=== PATIENT | female | born 1985 | race Asian ===

== ENCOUNTER 2019-08-22 22:22 | Emergency (ER) | payer OTHER ==
[~2019-08-22] VITALS: Ht 162.6 cm; Wt 50.8 kg
[2019-08-22 22:25] VITALS: BP_SYST 104
--- NOTE | 2019-08-22 22:25 | NUR ---
Patient triaged and placed in waiting room. VSS and patient appears in no acute distress at this time. Accompanied by fam member, awaiting available bed, and MD notified of need for MSE.
[2019-08-23 01:19] LABS: BASOPHILS % (AUTO) 0.4 % (0.0-2.0); EOSINOPHILS % (AUTO) 0.5 % (0.0-4.0); HEMATOCRIT 32.6 % (36-48); HEMOGLOBIN 10.6 g/dL (12.0-16.0); LYMPHOCYTES # (AUTO) 0.6 K/uL (1.0-5.5); LYMPHOCYTES % (AUTO) 9.7 % (20.5-51.5); MEAN CORPUSCULAR HEMOGLOBIN 26 pg (27-31); MEAN CORPUSCULAR HGB CONC 33 % (32-36); MEAN CORPUSCULAR VOLUME 81 fL (79.0-98.0); MONOCYTES # (AUTO) 0.5 K/uL (0.0-1.0); MONOCYTES % (AUTO) 6.9 % (1.7-9.3); NEUTROPHILS # (AUTO) 5.4 K/uL (1.8-7.7); NEUTROPHILS % (AUTO) 82.5 % (40.0-70.0); PLATELET COUNT (AUTO) 452 K/uL (130-430); RED BLOOD CELL COUNT(AUTO) 4.02 MIL/uL (4.2-6.2); RED CELL DISTRIBUTION WIDTH 14.8 % (9.0-15.0); WHITE BLOOD COUNT (AUTO) 6.6 K/uL (4.8-10.8)
[2019-08-23 01:32] LABS: CALCIUM 8.5 mg/dL (8.4-11.0); CREATININE 0.62 mg/dL (0.55-1.30); POTASSIUM 3.5 mmol/L (3.5-5.1)
[2019-08-23 01:37] LABS: ALBUMIN 3.5 g/dL (3.4-4.8); TOTAL BILIRUBIN 0.3 mg/dL (0.0-1.0)
[2019-08-23 01:44] LABS: BILIRUBIN,URINE NEGATIVE (NEGATIVE); BLOOD, URINE NEGATIVE (NEGATIVE); CLARITY/URINE CLEAR (CLEAR); COLOR,URINE YELLOW (YELLOW); GLUCOSE,URINE NEGATIVE (NEGATIVE); KETONES,URINE 1+ (NEGATIVE); LEUKOCYTE ESTERASE ,URINE NEGATIVE (NEGATIVE); NITRITE, URINE NEGATIVE (NEGATIVE); PH,URINE 7.5 (5.0-8.0); PROTEIN URINE NEGATIVE (NEGATIVE); UROBILINOGEN,URINE 0.2 (0.2-1.0)
--- NOTE | 2019-08-23 02:00 | NUR ---
Patient to ER bed 3 to gown for evaluation. Side rails up. Report given to Jimmy shanks.
[2019-08-23] MEDS ORDERED: NACL 0.9% 1,000 ML IV ONE ×2 (02:10→04:00)
--- NOTE | 2019-08-23 02:14 | NUR ---
Pt presents to ER with friend with c/o abdominal pain and dizziness. Pt A&Ox4. Pt states left upper quadrant pain with radiation to left flank pain. Pt states pain is 7/10. Pt states she was seen at [facility] yesterday and diagnosed with UTI. Pt states she was prescribed antibiotics. Pt states she took one antibiotic pill this morning and then took another pill at apptoximately 11 pm. Pt states she began feeling nauseated and vomited two times. Pt states she then began feeling head pain and dizziness. Pt states head pain 3/10. Pt denies fever, cough and SOB. Pt states she was diagnosed with influenza A three weeks ago. Upon assessment, pt has bilaterally clear breath sounds with no use of accessory muscles. Will continue to monitor.
[2019-08-23] MEDS ORDERED: ONDANSETRON HCL 4 MG/2 ML VIAL IVP ONE (02:15)
[2019-08-23] MEDS ORDERED: PANTOPRAZOLE SODIUM 40 MG/VIAL (PROTONIX) IVP ONE (02:15)
--- NOTE | 2019-08-23 02:43 | NUR ---
ALBA Arroyo at bedside attempting IV access.
--- NOTE | 2019-08-23 02:50 | NUR ---
Pt medicated per MD orders. Pt tolerated well. Will continue to monitor.
--- NOTE | 2019-08-23 03:46 | NUR ---
ER Dr. Garcia at bedside talking to patient.
--- NOTE | 2019-08-23 04:15 | NUR ---
ALBA Arroyo at bedside medicating pt.
--- NOTE | 2019-08-23 05:10 | NUR ---
ER Dr. Garcia at bedside explaining results to patient.
[2019-08-23 05:40] VITALS: BP_SYST 110
--- NOTE | 2019-08-23 05:40 | NUR ---
Patient given written and verbal discharge instructions and verbalizes understanding. ER MD Garcia discussed with patient the results and treatment provided. Patient in stable condition. ID arm band removed. IV catheter removed intact and dressing applied, no active bleeding. Rx of Protonix and zofran given. Patient educated on pain management and to follow up with PMD. Pain Scale 1/10. Opportunity for questions provided and answered. Medication side effect fact sheet provided.
== END 2019-08-23 05:40 | disposition home or self-care (01) ==
LOC: SED 22:22
DX: R10.12 Left upper quadrant pain (principal); R11.2 Nausea with vomiting, unspecified; R42 Dizziness and giddiness
CPT/HCPCS: 36415; 80053; 81003; 83690; 85025; 96361; 96374; 96375; 99284; C9113; J2405

== ENCOUNTER 2019-08-25 12:29 | Emergency (ER) | payer OTHER ==
[~2019-08-25] VITALS: Ht 162.6 cm; Wt 50.8 kg
[2019-08-25 12:30] VITALS: BP_SYST 105
[2019-08-25] MEDS ORDERED: NACL 0.9% 1,000 ML IV ONE (12:33)
[2019-08-25] MEDS ORDERED: ONDANSETRON HCL 4 MG/2 ML VIAL IVP ONE (12:45)
[2019-08-25] MEDS ORDERED: KETOROLAC TROMETHAMINE 30 MG VIAL IVP ONE (12:45)
[2019-08-25] MEDS ORDERED: NACL 0.9% 2,000 ML IV ONE ×2 (12:45→15:15)
[2019-08-25 13:20] LABS: BASOPHILS % (AUTO) 0.4 % (0.0-2.0); EOSINOPHILS # (AUTO) 0.1 K/uL (0.0-0.4); EOSINOPHILS % (AUTO) 0.8 % (0.0-4.0); HEMATOCRIT 35.4 % (36-48); HEMOGLOBIN 11.5 g/dL (12.0-16.0); LYMPHOCYTES # (AUTO) 0.9 K/uL (1.0-5.5); LYMPHOCYTES % (AUTO) 13.6 % (20.5-51.5); MEAN CORPUSCULAR HEMOGLOBIN 26 pg (27-31); MEAN CORPUSCULAR HGB CONC 32 % (32-36); MEAN CORPUSCULAR VOLUME 80 fL (79.0-98.0); MONOCYTES # (AUTO) 0.4 K/uL (0.0-1.0); MONOCYTES % (AUTO) 5.3 % (1.7-9.3); NEUTROPHILS # (AUTO) 5.5 K/uL (1.8-7.7); NEUTROPHILS % (AUTO) 79.9 % (40.0-70.0); PLATELET COUNT (AUTO) 448 K/uL (130-430); RED BLOOD CELL COUNT(AUTO) 4.41 MIL/uL (4.2-6.2); RED CELL DISTRIBUTION WIDTH 14.9 % (9.0-15.0); WHITE BLOOD COUNT (AUTO) 6.9 K/uL (4.8-10.8)
[2019-08-25 13:32] LABS: CALCIUM 8.7 mg/dL (8.4-11.0); CREATININE 0.7 mg/dL (0.55-1.30); POTASSIUM 3.3 mmol/L (3.5-5.1)
[2019-08-25 13:35] LABS: PROTHROMBIN TIME 10.5 SECS (9.5-12.5)
[2019-08-25 13:38] LABS: ALBUMIN 3.6 g/dL (3.4-4.8); TOTAL BILIRUBIN 0.5 mg/dL (0.0-1.0)
[2019-08-25 17:18] LABS: BARBITURATE, URINE NEGATIVE (NEG <=200); BENZODIAZEPINE, URINE NEGATIVE (NEG <=150); CANNABINOID, URINE NEGATIVE (NEG <=50); COCAINE, URINE NEGATIVE (NEG <=150); METHAMPHETAMINES SCREEN,URINE NEGATIVE (NEG <=500); OPIATE, URINE NEGATIVE (NEG <=100); PHENCYCLIDINE SCREEN,URINE NEGATIVE (NEG <=25); UR TRICYCLIC ANTIDEPRESSANTS NEGATIVE (NEG <=300); URINE AMPHETAMINE NEGATIVE (NEG <=500); URINE METHADONE NEGATIVE (NEG <=200); URINE OXYCODONE SCREEN NEGATIVE (NEG <=100); URINE PROPOXYPHENE SCREEN NEGATIVE (NEG <=300)
[2019-08-25 18:15] VITALS: BP_SYST 105
== END 2019-08-25 18:15 | disposition home or self-care (01) ==
LOC: SED 12:29
DX: E86.0 Dehydration (principal); R10.84 Generalized abdominal pain; R11.2 Nausea with vomiting, unspecified; R53.1 Weakness; R42 Dizziness and giddiness; L30.9 Dermatitis, unspecified
CPT/HCPCS: 36415; 71045; 80053; 80307; 81002; 82150; 83605; 83690; 84702; 85025; 85610; 85730; 86710; 87040; 96361; 96374; 96375; 99284; J1885; J2405